=== PATIENT | male | born 2000 | race African-American/Black ===

== ENCOUNTER 2018-03-26 08:22 | Emergency (ER) | payer SELFPAY ==
[~2018-03-26] VITALS: Ht 172.7 cm; Wt 73.0 kg
[2018-03-26] MEDS ORDERED: ONDANSETRON HCL 4MG TABLET PO ONE (12:00)
[2018-03-26] MEDS ORDERED: IBUPROFEN 600MG TABLET PO ONE (12:00)
[2018-03-26 13:10] VITALS: BP 131/71
== END 2018-03-26 13:12 | disposition home or self-care (01) ==
LOC: ER 11:07
DX: J02.9 Acute pharyngitis, unspecified (principal)
CPT/HCPCS: 87070; 87430; 99283; Q0162